=== PATIENT | female | born 1990 | race Caucasian/White ===

== ENCOUNTER 2019-04-07 07:24 | Inpatient (IN) | payer OTHER ==
[2019-04-07] MEDS ORDERED: XYLOCAINE 1% HCL 20 ML MDV IJ PRN (07:49)
[2019-04-07] MEDS ORDERED: Zofran 4 MG/2 ML VIAL IV PRN (07:49)
[2019-04-07 07:57] LABS: BASOPHIL % 0.1 % (0.0-0.4); Basophil (Absolute #) 0.01 (0-0.4); Eosinophil % 1.2 % (0.00-5.0); Eosinophil (Absolute #) 0.08 (0-0.5); Granulocyte Absolute (ANC) 3.78 (1.4-6.9); Granulocytes % 56.5 % (36.0-66.0); Hemoglobin 12.9 gm/dl (12.0-16.0); Lymphocyte (Absolute #) 2.32 (1.0-4.6); Lymphocytes % 34.6 % (24.0-44.0); Mean Cell Volume 90.5 fl (78-100); Mean Corpuscular Hemoglobin 31.5 pg (26-32); Mean Corpuscular Hgb Concent. 34.9 g/dl (32-36); Mean Platelet Volume 9.9 fl (6-9.5); Monocyte (Absolute #) 0.51 (0.0-1.3); Monocytes % 7.6 % (0.0-12.0); Platelet Count 134 K/mm3 (150-450); Red Blood Count 4.09 M/mm3 (4.1-5.4); Red Cell Distribution Width 13.3 % (11.5-14.0); White Blood Count 6.7 K/mm3 (4.0-10.5)
[2019-04-07] MEDS ORDERED: Lactated Ringers 1,000 ML IV SCH (08:00)
[2019-04-07] MEDS ORDERED: PITOCIN 30 UNITS/ LR 500 ML 500 ML IV SCH (08:00)
[2019-04-07 08:20] LABS: Amphetamine,Urine NEGATIVE (NEGATIVE); Barbiturate,Urine NEGATIVE (NEGATIVE); Benzodiazepine,Urine NEGATIVE (NEGATIVE); Cocaine,Urine NEGATIVE (NEGATIVE); Methadone,Urine NEGATIVE (NEGATIVE); Opiate,Urine NEGATIVE (NEGATIVE); PCP,Urine NEGATIVE (NEGATIVE); THC,Urine NEGATIVE (NEGATIVE)
[2019-04-07] MEDS ORDERED: Ambien 10 MG PO PRN (09:05)
[2019-04-07] MEDS ORDERED: LANSINOH 40 GM TOP PRN (09:05)
[2019-04-07] MEDS ORDERED: Dermoplast Spray TP PRN (09:05)
[2019-04-07] MEDS ORDERED: NORCO 5/325 MG PO PRN (09:05)
[2019-04-07] MEDS ORDERED: CORTISONE 1% CREAM TP PRN (09:05)
[2019-04-07] MEDS ORDERED: TYLENOL EXTRA STRENGTH 500 MG PO PRN (09:05)
[2019-04-07] MEDS ORDERED: Dulcolax 10 MG SUPP PR PRN (09:05)
[2019-04-07] MEDS ORDERED: Mylicon 80MG PO PRN (09:05)
[2019-04-07] MEDS ORDERED: TUCKS TP PRN (09:05)
[2019-04-07] MEDS ORDERED: Anucort-HC SUPPOSITORY PR PRN (09:05)
[2019-04-07] MEDS: MOTRIN 400 MG PO PRN ×2 (09:35→18:14)
[2019-04-07] MEDS: FERREX 150 PO SCH (09:35)
[2019-04-07] MEDS: Colace 100 MG PO SCH ×2 (09:36→21:43)
[2019-04-08] MEDS: MOTRIN 400 MG PO PRN ×2 (01:29→09:58)
[2019-04-08 04:45] LABS: BASOPHIL % 0.3 % (0.0-0.4); Basophil (Absolute #) 0.02 (0-0.4); Eosinophil % 1.3 % (0.00-5.0); Granulocyte Absolute (ANC) 3.95 (1.4-6.9); Granulocytes % 52.2 % (36.0-66.0); Hematocrit 33.4 % (35-47); Hemoglobin 11.5 gm/dl (12.0-16.0); Lymphocyte (Absolute #) 2.75 (1.0-4.6); Lymphocytes % 36.3 % (24.0-44.0); Mean Corpuscular Hgb Concent. 34.4 g/dl (32-36); Mean Platelet Volume 9.3 fl (6-9.5); Monocyte (Absolute #) 0.75 (0.0-1.3); Monocytes % 9.9 % (0.0-12.0); Platelet Count 120 K/mm3 (150-450); Red Blood Count 3.63 M/mm3 (4.1-5.4); Red Cell Distribution Width 13.4 % (11.5-14.0); White Blood Count 7.6 K/mm3 (4.0-10.5)
[2019-04-08 04:55] LABS: Mean Corpuscular Hemoglobin 31.6 pg (26-32)
[2019-04-08] MEDS: Colace 100 MG PO SCH (09:58)
[2019-04-08] MEDS: FERREX 150 PO SCH (09:58)
[2019-04-08 14:29] LABS: Immune Status: Immune
[2019-04-08 15:31] VITALS: BP 109/59; PULSE 67
[2019-04-08 15:49] LABS: RPR Screen Non Reactive (Non Reactive)
== END 2019-04-08 14:30 | disposition home or self-care (01) | DRG 807 ==
LOC: OB 07:25 → UNDOADMOB 07:25 → OB 07:25 → EDSTATUS 07:31
PROVIDERS: ADMIT Family Medicine; ATTEND Family Medicine
PROC: 10E0XZZ Delivery of Products of Conception, External Approach (ICD-10-PCS; principal; 2019-04-07)
DX: O69.81X0 Labor and delivery complicated by cord around neck, without compression, not applicable or unspecified (principal); Z37.0 Single live birth; Z3A.39 39 weeks gestation of pregnancy
CPT/HCPCS: 36415; 80307; 85025; 86592; 86593; 86701; 86702; 86762; 87340; 87389; G0378; J2590; 0064U; 0065U; A9270-GY

== ENCOUNTER 2019-06-19 11:27 | Inpatient (IN) | payer OTHER | END 2019-06-22 17:30 | disposition home or self-care (01) | LOC: ED 11:27 → MED SURG 17:45 ==

== ENCOUNTER 2022-04-22 19:54 | Emergency (ER) | payer OTHER ==
[2022-04-22] MEDS ORDERED: Sodium Chloride 0.9% 1000 ML 1,000 ML ONE (20:23)
[2022-04-22] MEDS ORDERED: Zofran 4 MG/2 ML VIAL ONE (20:24)
[2022-04-22] MEDS ORDERED: Zofran 4 MG/2 ML VIAL IV ONE (20:33)
[2022-04-22] MEDS ORDERED: Sodium Chloride 0.9% 1000 ML 1,000 ML IV STA (20:33)
[2022-04-22] MEDS ORDERED: MORPHINE SULFATE 4 MG INJ IV ONE (20:36)
[2022-04-22] MEDS ORDERED: MORPHINE SULFATE 4 MG INJ ONE (20:39)
[2022-04-22 21:06] LABS: Absolute Neutrophil Ct (ANC) 3.28 x10^3/uL (1.4-6.9); Basophil (Absolute #) 0.02 x10^3/uL (0-0.4); Eosinophil % 1.5 % (0.00-5.0); Eosinophil (Absolute #) 0.08 x10^3/uL (0-0.5); Hematocrit 36.4 % (35-47); Hemoglobin 12.3 g/dL (12.0-16.0); Lymphocyte (Absolute #) 1.54 x10^3/uL (1.0-4.6); Lymphocytes % 29.1 % (24.0-44.0); Mean Cell Volume 88.6 fL (78-100); Mean Corpuscular Hemoglobin 29.9 pg (26-32); Mean Corpuscular Hgb Concent. 33.8 g/dL (32-36); Mean Platelet Volume 9.7 fL (7.5-11.0); Monocyte (Absolute #) 0.36 x10^3/uL (0.0-1.3); Monocytes % 6.8 % (0.0-12.0); Platelet Count 165 x10^3/uL (150-450); Red Blood Count 4.11 x10^6/uL (4.1-5.4); White Blood Count 5.3 x10^3/uL (4.0-10.5)
[2022-04-22 21:18] LABS: Epithelial Cells RARE /HPF (FEW); Mucus SLIGHT /HPF (NEGATIVE); RBC 0-2 /HPF (0-2)
[2022-04-22 21:19] LABS: ALBUMIN 4.4 g/dL (3.5-5.0); ALKALINE PHOSPHATASE 67 U/L (38-126); ANION GAP 13.5 MEQ/L (5-15); BLOOD UREA NITROGEN 11 mg/dL (7-17); CHLORIDE 103 mmol/L (98-107); Calcium 8.9 mg/dL (8.4-10.2); Carbon Dioxide 26 mmol/L (22-30); Creatinine 1 0.65 mg/dL (0.52-1.04); EST GLOMERULAR FILTRATION RATE > 60.0 ML/MIN; Glucose 111 mg/dL (74-106); LIPASE 41 U/L (23-300); Potassium 3.6 mmol/L (3.5-5.1); SGOT/AST 23 U/L (14-36); SGPT/ALT 15 U/L (0-35); SODIUM 138 mmol/L (137-145); Total Protein 7.3 g/dL (6.3-8.2)
[2022-04-22 21:23] LABS: Appearance CLEAR (CLEAR); Bilirubin NEGATIVE (NEGATIVE); Dipstick done @ ? MAIN LAB; Glucose NEGATIVE (NEGATIVE); Ketones SMALL-15 (NEGATIVE); Nitrite NEGATIVE (NEGATIVE); Protein,Urine Dip NEGATIVE (Negative); RBC NEGATIVE Ery/ul (0-5); Specific Gravity >=1.030 (1.005-1.025); Urobilinogen 0.2 mg/dL (0-1)
[2022-04-22 21:24] LABS: Bacteria NONE SEEN /HPF (NEGATIVE)
[2022-04-22 21:25] LABS: Urine Cultured Indicated? NO
[2022-04-22 22:13] VITALS: BP 127/80; PULSE 58; O2SAT 97
[2022-04-22] MEDS ORDERED: PROTONIX 40 MG IV IV ONE ×2 (22:19→22:22)
--- NOTE | 2022-04-22 22:21 | ERPHSYRPT ---
- History of Present Illness Time Seen by Provider: 04/22/22 20:00 Historian: patient Exam Limitations: no limitations Patient Subjective Stated Complaint: pt states "I just got back from vacation yesterday and have been having this abdomen pain." Triage Nursing Assessment: pt ambulated into the er; pt is axo x4; c/o abd pain; pt states 9/10 pain to epigastric region; tenderness to epigastric; abd soft; c/o N/V; pt denies diarrhea; vitals wnl Physician History: 32 years old female presented to ER with chief complaint of abdominal pain since yesterday, moderate to severe intensity dull to sharp without any significant aggravating factors and partial relief with taking Tylenol. Associated multiple episodes of nonprojectile, nonbilious vomiting. It improved this morning but again this evening started to have pain. No definite association with oral intake. Timing/Duration: yesterday, intermittent, gradual onset, worse Activities at Onset: rest Quality: sharpness Abdominal Pain Onset Location: RUQ, LLQ, epigastric Pain Radiation: no radiation Severity of Pain-Max: severe Severity of Pain-Current: moderate Modifying Factors: Improves With: nothing Associated Symptoms: nausea, vomiting Previous symptoms: no prior history Allergies/Adverse Reactions: No Known Drug Allergies Allergy (Verified 04/22/22 20:05) Hx Tetanus, Diphtheria Vaccination/Date Given: Yes Hx Influenza Vaccination/Date Given: Yes Hx Pneumococcal Vaccination/Date Given: No Immunizations Up to Date: Yes Travel Risk - International Travel Have you traveled outside of the country in past 3 weeks: No - Coronavirus Screening Are you exhibiting any of the following symptoms?: Yes Symptoms: Vomiting/Diarrhea Close contact with a COVID-19 positive Pt in past 14-21 Days: No - Vaccine Status Have you recieved a Covid-19 vaccination: Yes [employer]: [employer] - Vaccination Dates Date of 2cond Vaccination (if applicable): 12/17/20 - Review of Systems Constitutional: No Symptoms Eyes: No Symptoms Ears, Nose, & Throat: No Symptoms Respiratory: No Symptoms Cardiac: No Symptoms Abdominal/Gastrointestinal: Abdominal Pain, Nausea, Vomiting Genitourinary Symptoms: No Symptoms Musculoskeletal: No Symptoms Skin: No Symptoms Neurological: No Symptoms Psychological: No Symptoms Endocrine: No Symptoms Hematologic/Lymphatic: No Symptoms Immunological/Allergic: No Symptoms - Past Medical History Pertinent Past Medical History: No Neurological History: No Pertinent History ENT History: No Pertinent History Cardiac History: No Pertinent History Respiratory History: No Pertinent History Endocrine Medical History: No Pertinent History Musculoskeletal History: No Pertinent History GI Medical History: No Pertinent History History: No Pertinent History Psycho-Social History: No Pertinent History Female Reproductive Disorders: No Pertinent History - Past Surgical History Past Surgical History: No Neuro Surgical History: No Pertinent History Cardiac: No Pertinent History Respiratory: No Pertinent History Gastrointestinal: No Pertinent History Genitourinary: No Pertinent History Musculoskeletal: No Pertinent History Female Surgical History: No Pertinent History Other Surgical History: vaginal delivery x 2 - Social History Smoking Status: Never smoker Exposure to second hand smoke: No Drug Use: none Patient Lives Alone: No - Female History Hx Now: (unkn) - Nursing Vital Signs Nursing Vital Signs: Initial Vital Signs Temperature 96.5 F 04/22/22 20:06 Pulse Rate 61 04/22/22 20:06 Respiratory Rate 18 04/22/22 20:06 Blood Pressure 127/85 04/22/22 20:06 O2 Sat by Pulse Oximetry 100 04/22/22 20:06 Pain Scale Pain Intensity 2 - Physical Exam General Appearance: no apparent distress, alert Eye Exam: PERRL/EOMI Ears, Nose, Throat Exam: normal ENT inspection, pharynx normal, moist mucous membranes Neck Exam: normal inspection, non-tender, supple, full range of motion Respiratory Exam: normal breath sounds, lungs clear Cardiovascular Exam: regular rate/rhythm, normal heart sounds Gastrointestinal/Abdomen Exam: soft, normal bowel sounds, tenderness (Mild epigastric area), other (Negative Nolen sign) Back Exam: normal inspection, normal range of motion Extremity Exam: normal inspection, normal range of motion Neurologic Exam: alert, oriented x 3, cooperative Skin Exam: normal color SpO2 Interpretation: normal SpO2: 97 O2 Delivery: Room Air Ordered Tests: Active Orders 24 hr Category Date Time Status AGAINST MEDICAL ADVISE [Release AMA] OM.NOW Care 04/22/22 20:56 Active ABDOMEN AND PELVIS W/0 CONTRAS [CT] Stat Exams 04/22/22 20:36 Taken CBC W DIFF Stat Lab 04/22/22 21:02 Completed CMP Stat Lab 04/22/22 21:02 Completed HCG,QUALITATIVE URINE Stat Lab 04/22/22 21:02 Completed LIPASE Stat Lab 04/22/22 21:02 Completed UA W/RFX CULTURE Stat Lab 04/22/22 20:34 Completed Medication Summary Discontinued Medications Generic Name Dose Route Start Last Admin Trade Name Manjula PRN Reason Stop Dose Admin Sodium Chloride Confirm 04/22/22 20:23 Sodium Chloride 0.9% 1000 Ml Administered 04/22/22 20:24 Dose 1,000 mls @ ud .ROUTE .STK-MED ONE Sodium Chloride 1,000 mls @ 999 mls/hr 04/22/22 20:33 04/22/22 22:12 Sodium Chloride 0.9% 1000 Ml IV 04/22/22 21:33 Infused .Q1H1M STA Infusion Morphine Sulfate 4 mg 04/22/22 20:36 04/22/22 20:41 Morphine Sulfate 4 Mg/Ml Injection IV 04/22/22 20:37 4 mg STAT ONE Administration Morphine Sulfate Confirm 04/22/22 20:39 Morphine Sulfate 4 Mg/Ml Injection Administered 04/22/22 20:40 Dose 4 mg .ROUTE .STK-MED ONE Ondansetron HCl Confirm 04/22/22 20:24 Ondansetron Hcl 4 Mg/2 Ml Vial Administered 04/22/22 20:25 Dose 4 mg .ROUTE .STK-MED ONE Ondansetron HCl 4 mg 04/22/22 20:33 04/22/22 20:33 Ondansetron Hcl 4 Mg/2 Ml Vial IV 04/22/22 20:34 4 mg STAT ONE Administration Pantoprazole Sodium 40 mg 04/22/22 22:19 04/22/22 22:23 Pantoprazole 40 Mg Vial IV 04/22/22 22:20 40 mg STAT ONE Administration Pantoprazole Sodium Confirm 04/22/22 22:22 Pantoprazole 40 Mg Vial Administered 04/22/22 22:23 Dose 40 mg IV .STK-MED ONE Lab/Rad Data: Laboratory Result Diagrams 04/22/22 21:02 04/22/22 21:02 Laboratory Results 04/22/22 04/22/22 04/22/22 Range/Units 21:02 21:02 21:02 WBC 5.3 (4.0-10.5) x10^3/uL RBC 4.11 (4.1-5.4) x10^6/uL Hgb 12.3 (12.0-16.0) g/dL Hct 36.4 (35-47) % MCV 88.6 (78-100) fL MCH 29.9 (26-32) pg MCHC 33.8 (32-36) g/dL RDW 12.0 (11.5-14.0) % Plt Count 165 (150-450) x10^3/uL MPV 9.7 (7.5-11.0) fL Gran % 62.0 (36.0-66.0) % Immature Gran % (Auto) 0.2 (0.00-0.4) % Nucleat RBC Rel Count 0.0 (0.00-0.1) % Eos # (Auto) 0.08 (0-0.5) x10^3/uL Immature Gran # (Auto) 0.01 (0.00-0.03) x10^3u/L Absolute Lymphs (auto) 1.54 (1.0-4.6) x10^3/uL Absolute Monos (auto) 0.36 (0.0-1.3) x10^3/uL Absolute Nucleated RBC 0.00 (0.00-0.01) x10^3u/L Lymphocytes % 29.1 (24.0-44.0) % Monocytes % 6.8 (0.0-12.0) % Eosinophils % 1.5 (0.00-5.0) % Basophils % 0.4 (0.0-0.4) % Absolute Granulocytes 3.28 (1.4-6.9) x10^3/uL Basophils # 0.02 (0-0.4) x10^3/uL Sodium 138 (137-145) mmol/L Potassium 3.6 (3.5-5.1) mmol/L Chloride 103 (98-107) mmol/L Carbon Dioxide 26 (22-30) mmol/L Anion Gap 13.5 (5-15) MEQ/L BUN 11 (7-17) mg/dL Creatinine 0.65 (0.52-1.04) mg/dL Estimated GFR > 60.0 ML/MIN Glucose 111 H (74-106) mg/dL Calcium 8.9 (8.4-10.2) mg/dL Total Bilirubin 0.60 (0.2-1.3) mg/dL AST 23 (14-36) U/L ALT 15 (0-35) U/L Alkaline Phosphatase 67 (38-126) U/L Serum Total Protein 7.3 (6.3-8.2) g/dL Albumin 4.4 (3.5-5.0) g/dL Lipase 41 (23-300) U/L Urinalys Dipstick Clnc Urine Color (YELLOW) Urine Appearance (CLEAR) Urine pH (5-6) Ur Specific [place] (1.005-1.025) POC Urine Protein Conf (Negative) Urine Ketones (NEGATIVE) Urine Nitrite (NEGATIVE) Urine Bilirubin (NEGATIVE) Urine Urobilinogen (0-1) mg/dL Urine Leukocytes (NEGATIVE) Urine WBC (Auto) (0-5) /HPF Urine RBC (Auto) (0-2) /HPF U Epithel Cells (Auto) (FEW) /HPF Urine Bacteria (Auto) (NEGATIVE) /HPF Urine RBC (0-5) [place]/ul Urine Mucus (Auto) (NEGATIVE) /HPF Ur Culture Indicated? Urine Glucose (NEGATIVE) mg/dL Urine HCG, Qual NEGATIVE (Negative) 04/22/22 Range/Units 20:34 WBC (4.0-10.5) x10^3/uL RBC (4.1-5.4) x10^6/uL Hgb (12.0-16.0) g/dL Hct (35-47) % MCV (78-100) fL MCH (26-32) pg MCHC (32-36) g/dL RDW (11.5-14.0) % Plt Count (150-450) x10^3/uL MPV (7.5-11.0) fL Gran % (36.0-66.0) % Immature Gran % (Auto) (0.00-0.4) % Nucleat RBC Rel Count (0.00-0.1) % Eos # (Auto) (0-0.5) x10^3/uL Immature Gran # (Auto) (0.00-0.03) x10^3u/L Absolute Lymphs (auto) (1.0-4.6) x10^3/uL Absolute Monos (auto) (0.0-1.3) x10^3/uL Absolute Nucleated RBC (0.00-0.01) x10^3u/L Lymphocytes % (24.0-44.0) % Monocytes % (0.0-12.0) % Eosinophils % (0.00-5.0) % Basophils % (0.0-0.4) % Absolute Granulocytes (1.4-6.9) x10^3/uL Basophils # (0-0.4) x10^3/uL Sodium (137-145) mmol/L Potassium (3.5-5.1) mmol/L Chloride (98-107) mmol/L Carbon Dioxide (22-30) mmol/L Anion Gap (5-15) MEQ/L BUN (7-17) mg/dL Creatinine (0.52-1.04) mg/dL Estimated GFR ML/MIN Glucose (74-106) mg/dL Calcium (8.4-10.2) mg/dL Total Bilirubin (0.2-1.3) mg/dL AST (14-36) U/L ALT (0-35) U/L Alkaline Phosphatase (38-126) U/L Serum Total Protein (6.3-8.2) g/dL Albumin (3.5-5.0) g/dL Lipase (23-300) U/L Urinalys Dipstick Clnc MAIN LAB Urine Color YELLOW (YELLOW) Urine Appearance CLEAR (CLEAR) Urine pH 6.0 (5-6) Ur Specific [place] >=1.030 (1.005-1.025) POC Urine Protein Conf NEGATIVE (Negative) Urine Ketones SMALL-15 (NEGATIVE) Urine Nitrite NEGATIVE (NEGATIVE) Urine Bilirubin NEGATIVE (NEGATIVE) Urine Urobilinogen 0.2 (0-1) mg/dL Urine Leukocytes NEGATIVE (NEGATIVE) Urine WBC (Auto) 3-5 (0-5) /HPF Urine RBC (Auto) 0-2 (0-2) /HPF U Epithel Cells (Auto) RARE (FEW) /HPF Urine Bacteria (Auto) NONE SEEN (NEGATIVE) /HPF Urine RBC NEGATIVE (0-5) [place]/ul Urine Mucus (Auto) SLIGHT (NEGATIVE) /HPF Ur Culture Indicated? NO Urine Glucose NEGATIVE (NEGATIVE) mg/dL Urine HCG, Qual (Negative) - Progress Progress: improved Progress Note: 04/22/22 22:27 She is given symptomatic treatment which along with fluids, on reevaluation her pain is completely resolved. Repeated exam is nonsurgical. Acute abdomen work- up negative including CT abdomen pelvis. I believe her symptoms are more of gastritis/GERD. Given Protonix and will continue with Protonix to go home. Discussed signs symptoms of worsening needing return to ER which she seems understanding. Stable for discharge. Counseled pt/family regarding: lab results, diagnosis, need for follow-up, rad results - Departure Departure Disposition: Home Clinical Impression: Upper abdominal pain, Nausea & vomiting Condition: Stable Critical Care Time: No Referrals: TENA ALEXANDRA MD [Primary Care Provider] - Follow up/PCP as directed (1-2 days for reevaluation) Instructions: Acid Reflux and GERD in Adults (DC), Severe Abdominal Pain, Adult (DC) Additional Instructions: Drink plenty of fluids to keep yourself well-hydrated. Follow-up with primary care for reevaluation. Take Tylenol as needed for pain. Do not take ibuprofen. Return to ER for intractable abdominal pain, nausea vomiting etc. Prescriptions: PANTOPRAZOLE 40 mg Tablet [Protonix 40MG Tablet] 40 mg PO QAM #30 tab
--- NOTE | 2022-04-23 08:40 | XRAY ---
Indication: Abdomen pain, nausea, vomiting, constipation, and diarrhea. Multiple contiguous axial images obtained through the abdomen and pelvis without contrast. Comparison: September 03, 2016 Lung bases remain clear. Heart not enlarged. Noncontrasted stomach and bowel loops appear nonobstructed again with normal appendix. Little fecal debris in the right hemicolon. Left lower renal calyx demonstrates new 2-3 mm nonobstructing calculus. Uterus again demonstrates IUD. No free fluid/air. Remaining liver, gallbladder, pancreas, spleen, adrenal glands, kidneys, ureters, bladder, and aorta are unremarkable for noncontrast exam. Osseous structures intact. No ventral or inguinal hernias. Impression: 1. New nonobstructing left renal micro-calculus. 2. Remaining CT abdomen/pelvis without contrast exam is negative. Comment: Preliminary interpretation made by [facility]. No critical discrepancy.
== END 2022-04-22 22:39 | disposition home or self-care (01) ==
LOC: ED 19:54
DX: R10.10 Upper abdominal pain, unspecified (principal); R11.2 Nausea with vomiting, unspecified
CPT/HCPCS: 36000; 36415; 74176; 80053; 81015; 81025; 83690; 85025; 96360; 96374; 96375; 99284; J2270; J2405